=== PATIENT | female | born 1975 ===

== ENCOUNTER 2021-01-03 15:50 | Inpatient (IN) ==
[2021-01-03] MEDS ORDERED: diPHENhydraMINE IV 50 MG/ML 1 ml VIAL (BENADRYL) IM ONE (16:55)
[2021-01-03 17:10] LABS: Urine Appearance Cloudy; Urine Bilirubin Negative (Negative); Urine Blood Negative (Negative); Urine Color Yellow; Urine Glucose Negative (Negative); Urine Ketones Negative (Negative); Urine Nitrite Negative (Negative); Urine Protein Negative (Negative); Urine Specific Gravity 1.018 (1.002-1.030); Urine Urobilinogen Negative (Negative)
[2021-01-03 17:35] LABS: Urine Benzodiazepine Screen None Detected (None Detect); Urine Cannabinoids Screen Presumptive Positive (None Detect); Urine Opiates Screen None Detected (None Detect)
[2021-01-03 18:45] LABS: ABS Eosinophils 0.4 10^3/ul (0-0.6); ABS Lymphocytes 2.1 10^3/ul (1.0-4.8); ABS Monocytes 0.4 10^3/ul (0-0.8); ABS Neutrophils 8.4 10^3/ul (1.5-7.7); Eosinophil % 3.8 %; Hematocrit 43 % (35-47); Hemoglobin 14.2 g/dL (12.0-16.0); Lymphocyte % 18.4 %; Mean Corpuscular HGB Conc 33 g/dL (31-36); Mean Corpuscular Hemoglobin 30 pg (27-31); Mean Corpuscular Volume 92 fL (80-97); Mean Platelet Volume 8.3 fL (7.4-10.4); Platelet Count 387 10^3/uL (150-450); Red Cell Distribution Width 14 % (10-15); White Blood Count 11.4 10^3/uL (3.5-10.8)
[2021-01-03 19:00] LABS: Anion Gap 8 mmol/L (2-11); CO2 Carbon Dioxide 21 mmol/L (22-32); Calcium 8.7 mg/dL (8.6-10.3); Chloride 108 mmol/L (101-111); Potassium 4.2 mmol/L (3.5-5.0); Sodium 137 mmol/L (135-145)
[2021-01-03 19:06] LABS: ALT 8 U/L (7-52); AST 14 U/L (13-39); Albumin/Globulin Ratio 1.2 (1-3); Alkaline Phosphatase 60 U/L (35-149); Blood Urea Nitrogen 14 mg/dL (6-24); Globulin 3.3 g/dL (2-4); Glucose 82 mg/dL (70-100); Total Protein 7.3 g/dL (6.4-8.9); eGFR CKD-EPI 80.3 (>60)
[2021-01-03 19:30] LABS: Acetaminophen < 15 mcg/mL; Alcohol, S < 13 mg/dL (<13); Salicylate < 2.50 mg/dL (<30)
[2021-01-03 20:16] LABS: Rapid COVID-19 Molecular Undetected (Undetected)
[2021-01-03 20:22] LABS: TSH Ultra Thyroid Stim Horm 1.51 mcIU/mL (0.34-5.60)
[2021-01-03] MEDS ORDERED: Al Hydrox/Mg Hydrox/Simet LIQ 30 ML UDC PO PRN (22:12)
[2021-01-04 02:15] LABS: HCG Pregnancy 0.87 mIU/mL
[2021-01-04] MEDS ORDERED: Nicotine GUM 4MG FRUIT FLAVOR PO ONE (09:03)
[2021-01-04] MEDS ORDERED: Nicotine PATCH 21 MG/24 HR PATCH ONE (09:04)
[2021-01-04] MEDS: buPROPion SR 100 mg TAB.SR PO SCH (09:12)
[2021-01-04] MEDS: Vitamin THERAPEUTIC TAB PO SCH (09:12)
[2021-01-04] MEDS ORDERED: Nicotine GUM 4MG FRUIT FLAVOR PO PRN (09:48)
[2021-01-04] MEDS ORDERED: CMC:Meloxicam 7.5 mg TAB (NF) PO PRN (10:14)
[2021-01-04] MEDS ORDERED: Ondansetron ODT 4 mg TAB 4 MG TAB ONE (10:29)
[2021-01-04] MEDS: Nicotine PATCH 21 MG/24 HR PATCH TRANSDERM SCH (13:14)
[2021-01-05] MEDS: Ondansetron ODT 4 mg TAB 4 MG TAB PO PRN (07:57)
[2021-01-05 08:14] LABS: HDL Cholesterol 42.7 mg/dL
[2021-01-05] MEDS: buPROPion SR 100 mg TAB.SR PO SCH (08:44)
[2021-01-05] MEDS: Vitamin THERAPEUTIC TAB PO SCH (08:44)
[2021-01-05] MEDS: Nicotine PATCH 21 MG/24 HR PATCH TRANSDERM SCH (08:45)
[2021-01-06] MEDS: Ondansetron ODT 4 mg TAB 4 MG TAB PO PRN (08:17)
[2021-01-06] MEDS: Vitamin THERAPEUTIC TAB PO SCH (08:17)
[2021-01-06] MEDS: buPROPion SR 100 mg TAB.SR PO SCH (08:17)
[2021-01-06] MEDS: Nicotine PATCH 21 MG/24 HR PATCH TRANSDERM SCH (08:18)
[2021-01-06] MEDS ORDERED: Benzocaine (DENTAL) 10% TOP.GEL TOPICAL PRN (08:24)
[2021-01-07] MEDS: Nicotine PATCH 21 MG/24 HR PATCH TRANSDERM SCH (07:17)
[2021-01-07] MEDS: buPROPion SR 100 mg TAB.SR PO SCH (08:31)
[2021-01-07] MEDS: Vitamin THERAPEUTIC TAB PO SCH (08:32)
[2021-01-07 09:22] VITALS: BP 127/78
== END 2021-01-07 13:05 | disposition home or self-care (01) | DRG 753 ==
LOC: ED 15:50 → BSU 20:59
PROVIDERS: ADMIT Psychiatry & Neurology Psychiatry; ATTEND Psychiatry & Neurology Psychiatry